=== PATIENT | female | born 1935 | race Caucasian/White ===

== ENCOUNTER 2017-01-05 09:33 | Outpatient (CLI) | payer MEDICARE ==
[2017-01-05 10:05] LABS: Anion Gap 11 mmol/L (10-20); BUN (Urea Nitrogen) 18 mg/dL (9.8-20.1); Calc. Creatinine Clearance 0 mL/min (70-130); Calcium 9.1 mg/dL (7.8-10.44); Carbon Dioxide 26 mmol/L (23-31); Chloride 109 mmol/L (98-107); Estimated GFR-MDRD 58; Glucose 88 mg/dL (83-110); Potassium 3.7 mmol/L (3.5-5.1); Sodium 142 mmol/L (136-145)
== END 2017-01-05 09:34 | disposition home or self-care (01) ==
LOC: MADLAB 09:33
PROVIDERS: ATTEND Internal Medicine Nephrology
DX: N18.3 Chronic kidney disease, stage 3 (moderate) (principal)
CPT/HCPCS: 36415; 80048

== ENCOUNTER 2017-02-18 13:28 | Emergency (ER) | payer MEDICARE ==
[2017-02-18 15:09] LABS: Hemoglobin 14.4 g/dL (12.0-16.0); Mean Corpuscular Hemoglobin 31.9 pg (27.0-31.0); Mean Corpuscular Volume 94.3 fL (81.0-99.0); Red Blood Cell (RBC) Count 4.51 mill/uL (4.20-5.40); White Blood Cell (WBC) Count 8.1 thou/uL (4.8-10.8)
[2017-02-18 15:10] LABS: #Basophils 0.1 thou/uL (0.0-0.2); #Eosinphils 0.2 thou/uL (0.0-0.7); #Lymphocytes 1.6 thou/uL (1.20-3.40); #Neutrophils 5.2 thou/uL (1.40-6.50); %Basophils 0.7 % (0.0-1.0); %Eosinophils 2.4 % (0.0-10.0); %Lymphocytes 20.1 % (21.0-51.0); %Monocytes 12.7 % (0.0-10.0); Mean Corpuscular HGB CONC 33.8 g/dL (32.0-36.0); Mean Platelet Volume 7.2 fL (7.4-10.4); Platelet Count 256 thou/uL (130-400); RBC Distribution Width 11.6 % (11.5-14.5)
== END 2017-02-18 14:44 | disposition home or self-care (01) ==
LOC: MADERS 13:28
DX: J20.9 Acute bronchitis, unspecified (principal); I10 Essential (primary) hypertension; F41.9 Anxiety disorder, unspecified; F32.9 Major depressive disorder, single episode, unspecified
CPT/HCPCS: 36415; 85025; 99283

== ENCOUNTER 2017-05-01 08:40 | Outpatient (CLI) | payer MEDICARE ==
[2017-05-01 09:14] LABS: #Eosinphils 0.3 thou/uL (0.0-0.7); #Lymphocytes 1.7 thou/uL (1.20-3.40); #Monocytes 0.6 thou/uL (0.11-0.59); #Neutrophils 3.6 thou/uL (1.40-6.50); %Basophils 0.7 % (0.0-1.0); %Eosinophils 4.7 % (0.0-10.0); %Lymphocytes 26.9 % (21.0-51.0); %Neutrophils 57.7 % (42.0-75.0); Hemoglobin 14.7 g/dL (12.0-16.0); Mean Corpuscular HGB CONC 33.1 g/dL (32.0-36.0); Mean Corpuscular Volume 96.6 fl (81.0-99.0); Mean Platelet Volume 7.8 fL (7.4-10.4); Platelet Count 189 thou/uL (130-400); RBC Distribution Width 13.2 % (11.5-14.5); White Blood Cell (WBC) Count 6.2 thou/uL (4.8-10.8)
[2017-05-01 10:39] LABS: ALT (SGPT) 11 U/L (8-55); AST (SGOT) 11 U/L (5-34); Albumin 3.8 g/dL (3.4-4.8); Alkaline Phosphatase 53 U/L (40-150); Anion Gap 11 mmol/L (10-20); BUN (Urea Nitrogen) 22 mg/dL (9.8-20.1); Bilirubin, Total 0.8 mg/dL (0.2-1.2); Calc. Creatinine Clearance 0 mL/min (70-130); Calcium 9.5 mg/dL (7.8-10.44); Carbon Dioxide 28 mmol/L (23-31); Cardiac Risk 2.7 (Less than 4.5); Chloride 106 mmol/L (98-107); Cholesterol 158 mg/dl (< 200 Desired); Estimated GFR-MDRD 48; Globulin 2.5 g/dL (2.4-3.5); Glucose 88 mg/dL (83-110); HDL Cholesterol 59 mg/dL (>60 Neg Risk); LDL Cholesterol, Calculated 80 mg/dL; Potassium 4.1 mmol/L (3.5-5.1); Protein, Total 6.3 g/dL (6.0-8.3); Sodium 141 mmol/L (136-145); Triglycerides 93 mg/dL (Less than 150)
== END 2017-05-01 08:41 | disposition home or self-care (01) ==
LOC: MADLAB 08:40
PROVIDERS: ATTEND Internal Medicine Cardiovascular Disease
DX: E78.00 Pure hypercholesterolemia, unspecified (principal); R06.02 Shortness of breath
CPT/HCPCS: 36415; 80053; 80061; 85025

== ENCOUNTER 2017-07-12 07:34 | Outpatient (CLI) | payer MEDICARE ==
[2017-07-12 08:04] LABS: Anion Gap 13 mmol/L (10-20); BUN (Urea Nitrogen) 19 mg/dL (9.8-20.1); Calc. Creatinine Clearance 0 mL/min (70-130); Calcium 9.8 mg/dL (7.8-10.44); Carbon Dioxide 27 mmol/L (23-31); Chloride 106 mmol/L (98-107); Estimated GFR-MDRD 44; Glucose 100 mg/dL (83-110); Sodium 142 mmol/L (136-145)
[2017-07-12] MEDS ORDERED: Iopamidol 370 76% 100 ML VIAL ONE (09:19)
--- NOTE | 2017-07-12 11:27 | CT ---
ABDOMEN AND PELVIC CT SCAN WITH AND WITHOUT IV CONTRAST: History: 82-year-old female with hematuria. Technique: With and without contrast multi-phase CT examination of the abdomen and pelvis is performed. Comparison: 02-04-14, 05-22-13 FINDINGS: The lung bases are clear. There are multiple stable liver cysts. The liver, gallbladder, pancreas, a nd spleen are unremarkable. There is a 2.8 cm diameter mass involving the left adrenal gland with no nspecific attenuation features but certainly not consistent with that of a typical benign intrarenal adenoma. It is very slightly increased in size when compared to the two prior studies, at the time of the 05-22-13 study this mass measured approximately 2.6 cm which suggests some very slight growth s steffany that time. There are two nonobstructing left renal calculi up to approximately 0.6 cm. No evide nce of renal hydronephrosis. No evidence for ureteral calculus. IMPRESSION: Two nonobstructing left renal calculi without evidence for acute obstruction. Solid mass involvin g the left adrenal gland which shows very slight increase in size, previously measuring 2.6 cm in si ze on the 05-22-13 study and measuring approximately 2.8 cm in size on today's study. Stable renal cys ts. Code T POS: [facility]
== END 2017-07-12 07:35 | disposition home or self-care (01) ==
LOC: MADCT 07:34
PROVIDERS: ATTEND Urology
DX: N20.0 Calculus of kidney (principal); E27.8 Other specified disorders of adrenal gland
CPT/HCPCS: 36415; 74178; 80048

== ENCOUNTER 2017-09-25 14:47 | Outpatient (CLI) | payer MEDICARE ==
--- NOTE | 2017-09-25 16:17 | RAD ---
PA AND LATERAL CHEST XRAY: DATE: 09/25/17. HISTORY: Right chest wall rib pain after a fall. COMPARISON: 06/06/16. FINDINGS: Cardiac silhouette and pulmonary vasculature are within normal limits. The lungs remain clear. Mini mal vascular calcifications are seen in the ectatic thoracic aorta. Degenerative changes are noted i n the spine. IMPRESSION: 1. No acute cardiopulmonary process. 2. Provided images demonstrate no evidence of a right-sided rib fracture. POS: [facility]
--- NOTE | 2017-09-25 16:27 | RAD ---
THREE VIEWS RIGHT RIBS: 09/25/17 HISTORY: Right sided rib pain after a fall. FINDINGS: The right lung is clear. there is no pneumothorax or pleural effusion. No right sided rib fracture is seen. IMPRESSION: No right sided rib fracture is present. POS: [facility]
== END 2017-09-25 14:48 | disposition home or self-care (01) ==
LOC: MADRAD 14:47
PROVIDERS: ATTEND Family Medicine
DX: S20.211A Contusion of right front wall of thorax, initial encounter (principal); W18.30XA Fall on same level, unspecified, initial encounter
CPT/HCPCS: 71046

== ENCOUNTER 2018-01-21 09:31 | Emergency (ER) | payer MEDICARE | END 2018-01-21 10:20 | disposition home or self-care (01) | LOC: MADERS 09:31 | DX: J30.1 Allergic rhinitis due to pollen (principal); F41.9 Anxiety disorder, unspecified; F32.9 Major depressive disorder, single episode, unspecified; I10 Essential (primary) hypertension; M10.9 Gout, unspecified; Z79.899 Other long term (current) drug therapy | CPT/HCPCS: 99282 ==

== ENCOUNTER 2018-03-22 09:00 | Emergency (ER) | payer MEDICARE ==
--- NOTE | 2018-03-22 09:50 | RAD ---
THREE VIEWS LEFT INDEX FINGER: Comparison: None. History: Left index finger injury with pain and swelling. FINDINGS: Three views of the left index finger shows a comminuted fracture of the tuft of the distal phalanx wi th overlying soft tissue swelling. There is moderate degenerative change in the PIP and DIP joint of the index finger. IMPRESSION: Tuft fracture distal phalanx of the index finger. POS: [facility]
[2018-03-22] MEDS ORDERED: Adacel (T-DAP) 0.5 ML VIAL ONE (11:01)
[2018-03-22] MEDS ORDERED: Clindamycin 150 MG CAP ONE (11:01)
[2018-03-22] MEDS ORDERED: Sodium Chloride Irrig Solution 250 ML BOT ONE (12:00)
[2018-03-22] MEDS ORDERED: Triple Antibiotic Oint 1 GM Packet ONE (12:00)
== END 2018-03-22 12:20 | disposition home or self-care (01) ==
LOC: MADERS 09:00
DX: S62.631A Displaced fracture of distal phalanx of left index finger, initial encounter for closed fracture (principal); S61.211A Laceration without foreign body of left index finger without damage to nail, initial encounter; I10 Essential (primary) hypertension; M10.9 Gout, unspecified; F41.9 Anxiety disorder, unspecified; F32.9 Major depressive disorder, single episode, unspecified; Z79.899 Other long term (current) drug therapy; W23.0XXA Caught, crushed, jammed, or pinched between moving objects, initial encounter
CPT/HCPCS: 12004; 90471; 90715; J2001

== ENCOUNTER 2018-04-16 08:31 | Outpatient (CLI) | payer MEDICARE ==
--- NOTE | 2018-04-16 10:41 | RAD ---
THREE VIEWS OF THE LEFT INDEX FINGER: Date: 04-16-18 Comparison: 03-22-18 History: Re-evaluate fracture seen on prior imaging. FINDINGS: There is a comminuted obliquely oriented and mildly displaced fracture involving the distal aspect of the left second distal phalanx. This fracture appears unchanged when compared to the 03-22-18 examinat ion, with no significant interval healing. There is overlying soft tissue swelling. There is cortical irregularity involving the distal tip of the third distal phalanx suggesting remote injury. IMPRESSION: No significant interval change in comminuted obliquely oriented nondisplaced fracture of the 2nd dist al phalanx. POS: [facility]
== END 2018-04-16 08:32 | disposition home or self-care (01) ==
LOC: MADRAD 08:31
PROVIDERS: ATTEND Family Medicine
DX: S62.661A Nondisplaced fracture of distal phalanx of left index finger, initial encounter for closed fracture (principal)

== ENCOUNTER 2018-05-01 09:57 | Outpatient (CLI) | payer MEDICARE ==
--- NOTE | 2018-05-01 11:19 | ULT ---
RENAL SONOGRAM: HISTORY: Stones. Flank pain. FINDINGS: The right kidney is 9.3 cm and the left is 9.4 cm. Each has a normal sonographic appearance without evidence of mass, stone, or hydronephrosis. No shadowing calculi are reliably demonstrated. Urinary bladder is decompressed. IMPRESSION: No sonographic evidence of urinary tract obstruction. Stones not visualized sonographically. POS: [facility]
--- NOTE | 2018-05-01 11:21 | RAD ---
RADIOGRAPH ABDOMEN ONE VIEW: DATE: 05-01-18 History: 83-year-old female with history of nephrolithiasis (calculus of kidney). FINDINGS: No radiopaque calculus is visualized overlying the bilateral renal shadows. Bowel gas pattern is norm al. Lumbar spondylosis. Mild levoscoliosis of the lumbar spine. IMPRESSION: 1. No radiopaque renal calculi identified. 2. Lumbar spondylosis. POS: [facility]
== END 2018-05-01 09:58 | disposition home or self-care (01) ==
LOC: MADRAD 09:57
PROVIDERS: ATTEND Urology
DX: N20.0 Calculus of kidney (principal); M47.896 Other spondylosis, lumbar region
CPT/HCPCS: 74018; 76770

== ENCOUNTER 2018-05-08 14:48 | Outpatient (CLI) | payer MEDICARE ==
--- NOTE | 2018-05-08 15:55 | RAD ---
LEFT HAND THREE VIEWS: History: Left hand injury. Fracture. Comparison: 04-16-18 FINDINGS: Fracture planes remain lucent at the distal kit of the index and middle fingers. No new fractures a re apparent. Osteoarthritic changes are again demonstrated. No aggressive osseous destruction or radi opaque foreign bodies. Osseous structures are demineralized. IMPRESSION: 1. No significant healing is yet evident. No new abnormalities. 2. Osteoarthritis. 3. Osteoporosis. POS: [facility]
== END 2018-05-08 14:49 | disposition home or self-care (01) ==
LOC: MADRAD 14:48
PROVIDERS: ATTEND Family Medicine
DX: S62.631D Displaced fracture of distal phalanx of left index finger, subsequent encounter for fracture with routine healing (principal); S62.633D Displaced fracture of distal phalanx of left middle finger, subsequent encounter for fracture with routine healing; M19.042 Primary osteoarthritis, left hand; M81.0 Age-related osteoporosis without current pathological fracture

== ENCOUNTER 2018-08-23 11:02 | Outpatient (CLI) | payer MEDICARE ==
--- NOTE | 2018-08-23 13:13 | RAD ---
FOUR VIEWS OF THE RIGHT KNEE: Date: 08-23-18 Comparison: 11-14-07 History: Right knee pain since November. 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 There is osteophyte formation involving the proximal right tibia medially. There is no evidence for hardware failure. No significant knee joint effusion, fracture, or dislocati on. There are post-operative change involving the posterior aspect of the patella. IMPRESSION: Post-operative changes. No acute osseous abnormalities seen. POS: [facility]
== END 2018-08-23 11:03 | disposition home or self-care (01) ==
LOC: MADRAD 11:02
PROVIDERS: ATTEND Family Medicine
DX: Z13.9 Encounter for screening, unspecified (principal); M25.561 Pain in right knee; Z98.890 Other specified postprocedural states

== ENCOUNTER 2018-09-18 09:06 | Emergency (ER) | payer MEDICARE ==
[2018-09-18 09:28] LABS: Bilirubin Negative (Negative); Blood, Urine Large (Negative); Clarity Cloudy (Clear); Glucose, Urine (Dipstick) Negative (Negative); Leukocyte Small (Negative); Nitrite Negative (Negative); Protein, Urine (Dipstick) 30 mg/dL (Neg-Trace); Specific Gravity, Urine 1.025 (1.005-1.030); Urobilinogen 0.2 mg/dL (0.2-1.0); pH, Urine 5.5 (5.0-9.0)
[2018-09-18 09:31] LABS: RBC/HPF GREATER THAN 50-TNTC HPF (0-3)
[2018-09-18 09:34] LABS: Bacteria/HPF 2+ HPF (None Seen)
[2018-09-18] MEDS ORDERED: Ondansetron PF 4 MG/2 ML Vial ONE (09:43)
[2018-09-18] MEDS ORDERED: Morphine 4 MG/ML VIAL ONE (09:43)
[2018-09-18] MEDS ORDERED: Ketorolac Tromethamine 30 MG/ML VIAL ONE (09:43)
[2018-09-18] MEDS ORDERED: Sodium Chloride 0.9% 1,000 ML ONE (09:43)
[2018-09-18 09:55] LABS: #Lymphocytes 1.1 thou/uL (1.20-3.40); #Monocytes 0.3 thou/uL (0.11-0.59); #Neutrophils 5.7 thou/uL (1.40-6.50); %Basophils 0.6 % (0.0-1.0); %Eosinophils 0.4 % (0.0-10.0); %Lymphocytes 15.9 % (21.0-51.0); %Monocytes 4.2 % (0.0-10.0); %Neutrophils 78.9 % (42.0-75.0); Hemoglobin 15.6 g/dL (12.0-16.0); Mean Corpuscular HGB CONC 33.3 g/dL (32.0-36.0); Mean Corpuscular Volume 96.2 fL (78.0-98.0); Mean Platelet Volume 8.1 fL (7.4-10.4); Platelet Count 206 thou/uL (130-400); RBC Distribution Width 13.4 % (11.5-14.5); Red Blood Cell (RBC) Count 4.86 mill/uL (4.20-5.40); White Blood Cell (WBC) Count 7.2 thou/uL (4.8-10.8)
[2018-09-18 10:09] LABS: Anion Gap 16 mmol/L (10-20); BUN (Urea Nitrogen) 14 mg/dL (9.8-20.1); Calc. Creatinine Clearance 0 mL/min (70-130); Calcium 9.6 mg/dL (7.8-10.44); Carbon Dioxide 21 mmol/L (23-31); Chloride 109 mmol/L (98-107); Estimated GFR-MDRD 46; Glucose 149 mg/dL (83-110); Potassium 3.7 mmol/L (3.5-5.1); Sodium 142 mmol/L (136-145)
--- NOTE | 2018-09-18 10:34 | CT ---
CT ABDOMEN AND PELVIS NONCONTRAST: HISTORY: Left flank pain. COMPARISON: 02/04/2014. FINDINGS: The left renal collecting system and ureter are mildly distended to the level of a 0.5 cm calculus at the distal left ureter. The left ureter is decompressed beyond this point. A 0.5 cm calculus is al so present within a calyx at the mid portion of the left kidney. Right renal collecting system, ureter, and urinary bladder are decompressed without stone evident. Lack of contrast limits evaluation for other abnormalities. Hepatic cysts are again demonstrated. C alcification within the arterial structures. Low-density mass of the left adrenal gland has enlarged slightly, now measuring up to 2.8 cm where it was previously 2.5 cm. Degenerative changes lumbar sp ine. IMPRESSION: 1. Partial obstruction at a 5 mm distal left ureteral calculus. Additional nonobstructing left jamaal l calculus. 2. Slight interval enlargement left adrenal adenoma. POS: [facility]
== END 2018-09-18 11:12 | disposition home or self-care (01) ==
LOC: MADERS 09:06
DX: N20.1 Calculus of ureter (principal); I10 Essential (primary) hypertension; M10.9 Gout, unspecified; F41.9 Anxiety disorder, unspecified; F32.9 Major depressive disorder, single episode, unspecified; Z79.899 Other long term (current) drug therapy
CPT/HCPCS: 74176; 80048; 81001; 85025; 87077; 87086; 87186; 96361; 96374; 96375; J1885; J2270; J2405; J7050

== ENCOUNTER 2018-11-08 08:40 | Outpatient (CLI) | payer MEDICARE ==
[2018-11-08 13:31] LABS: ALT (SGPT) 13 U/L (8-55); AST (SGOT) 10 U/L (5-34); Alkaline Phosphatase 75 U/L (40-150); Anion Gap 12 mmol/L (10-20); BUN (Urea Nitrogen) 19 mg/dL (9.8-20.1); Bilirubin, Total 0.9 mg/dL (0.2-1.2); Calc. Creatinine Clearance 0 mL/min (70-130); Calcium 9.5 mg/dL (7.8-10.44); Carbon Dioxide 28 mmol/L (23-31); Cardiac Risk 2.6 (Less than 4.5); Chloride 106 mmol/L (98-107); Cholesterol 164 mg/dl (< 200 Desired); Estimated GFR-MDRD 60; Globulin 2.2 g/dL (2.4-3.5); Glucose 93 mg/dL (83-110); HDL Cholesterol 62 mg/dL (>60 Neg Risk); LDL Cholesterol, Calculated 88 mg/dL; Potassium 4.2 mmol/L (3.5-5.1); Protein, Total 6.2 g/dL (6.0-8.3); Sodium 142 mmol/L (136-145); Triglycerides 68 mg/dL (Less than 150)
== END 2018-11-08 08:41 | disposition home or self-care (01) ==
LOC: MADLAB 08:40
PROVIDERS: ATTEND Internal Medicine Cardiovascular Disease
DX: E78.00 Pure hypercholesterolemia, unspecified (principal)
CPT/HCPCS: 36415; 80053; 80061

== ENCOUNTER 2019-07-07 12:59 | Emergency (ER) | payer MEDICARE ==
--- NOTE | 2019-07-07 13:24 | RAD ---
Left ankle: 3 VIEWS INDICATION:Injury and pain COMPARISON:None FINDINGS: Soft tissue swelling laterally No evidence of fracture. No acute osseous abnormality identified. Enthesophyte from the calcaneus. IMPRESSION: No evidence of fracture
== END 2019-07-07 13:35 | disposition home or self-care (01) ==
LOC: MADERS 12:59
DX: S93.402A Sprain of unspecified ligament of left ankle, initial encounter (principal); I10 Essential (primary) hypertension; M10.9 Gout, unspecified; F41.9 Anxiety disorder, unspecified; F32.9 Major depressive disorder, single episode, unspecified; Z79.899 Other long term (current) drug therapy; X50.1XXA Overexertion from prolonged static or awkward postures, initial encounter

== ENCOUNTER 2021-06-30 13:31 | Emergency (ER) | payer MEDICARE | END 2021-06-30 15:10 | disposition home or self-care (01) | LOC: MADERS 13:31 | DX: S43.401A Unspecified sprain of right shoulder joint, initial encounter (principal); I10 Essential (primary) hypertension; W01.0XXA Fall on same level from slipping, tripping and stumbling without subsequent striking against object, initial encounter | CPT/HCPCS: 71046 ==

== ENCOUNTER 2022-06-17 08:34 | Outpatient (CLI) | payer MEDICARE ==
[2022-06-17 09:25] LABS: #Basophils 0.1 thou/uL (0.0-0.2); #Eosinphils 0.3 thou/uL (0.0-0.7); #Lymphocytes 2.3 thou/uL (1.20-3.40); #Monocytes 0.7 thou/uL (0.11-0.59); %Basophils 1.2 % (0.0-1.0); %Eosinophils 6.1 % (0.0-10.0); %Lymphocytes 42.8 % (21.0-51.0); %Monocytes 13.1 % (0.0-10.0); %Neutrophils 36.9 % (42.0-75.0); Hemoglobin 14.3 g/dL (12.0-16.0); Mean Corpuscular HGB CONC 30.6 g/dL (32.0-36.0); Mean Corpuscular Hemoglobin 30.9 pg (27.0-31.0); Mean Platelet Volume 8.8 fL (7.4-10.4); Platelet Count 177 thou/uL (130-400); RBC Distribution Width 13.4 % (11.5-14.5); Red Blood Cell (RBC) Count 4.61 mill/uL (4.20-5.40); White Blood Cell (WBC) Count 5.3 thou/uL (4.8-10.8)
[2022-06-17 09:30] LABS: ALT (SGPT) 10 U/L (8-55); AST (SGOT) 14 U/L (5-34); Albumin 3.9 g/dL (3.4-4.8); Alkaline Phosphatase 60 U/L (40-110); Anion Gap 13 mmol/L (10-20); BUN (Urea Nitrogen) 23 mg/dL (9.8-20.1); Bilirubin, Total 0.7 mg/dL (0.2-1.2); Calc. Creatinine Clearance 0 mL/min (70-130); Calcium 9.8 mg/dL (7.8-10.44); Carbon Dioxide 30 mmol/L (23-31); Cardiac Risk 2.8 (Less than 4.5); Chloride 103 mmol/L (98-107); Cholesterol 132 mg/dl (< 200 Desired); Estimated GFR 41; Globulin 2.5 g/dL (2.4-3.5); Glucose 86 mg/dL (83-110); HDL Cholesterol 47 mg/dL (>60 Neg Risk); LDL Cholesterol, Calculated 59 mg/dL; Potassium 3.9 mmol/L (3.5-5.1); Protein, Total 6.4 g/dL (5.8-8.1); Sodium 142 mmol/L (136-145); Triglycerides 128 mg/dL (Less than 150)
== END 2022-06-17 08:35 | disposition home or self-care (01) ==
LOC: MADLAB 08:34
PROVIDERS: ATTEND Internal Medicine Cardiovascular Disease
DX: R06.02 Shortness of breath (principal); E78.00 Pure hypercholesterolemia, unspecified
CPT/HCPCS: 36415; 71046; 80053; 80061; 84443; 85025

== ENCOUNTER 2023-07-18 11:39 | Outpatient (CLI) | payer MEDICARE | END 2023-07-18 11:40 | disposition home or self-care (01) | LOC: MADLAB 11:39 | PROVIDERS: ATTEND Surgery | DX: M47.22 Other spondylosis with radiculopathy, cervical region (principal); M48.02 Spinal stenosis, cervical region | CPT/HCPCS: 72125 ==

== ENCOUNTER 2023-08-22 08:26 | Emergency (ER) | payer OTHER, MEDICARE ==
[2023-08-22 09:36] LABS: #Eosinphils 0.2 thou/uL (0.0-0.7); #Lymphocytes 1.3 thou/uL (1.20-3.40); #Monocytes 0.7 thou/uL (0.11-0.59); #Neutrophils 2.7 thou/uL (1.40-6.50); %Basophils 0.8 % (0.0-1.0); %Eosinophils 3.9 % (0.0-10.0); %Lymphocytes 26.3 % (21.0-51.0); %Monocytes 14.3 % (0.0-10.0); %Neutrophils 54.7 % (42.0-75.0); Hematocrit 46.8 % (36.0-47.0); Hemoglobin 15.1 g/dL (12.0-16.0); Mean Corpuscular HGB CONC 32.2 g/dL (32.0-36.0); Mean Corpuscular Hemoglobin 32.1 pg (27.0-31.0); Mean Corpuscular Volume 99.8 fl (78.0-98.0); Mean Platelet Volume 9.6 fL (7.4-10.4); Platelet Count 167 10x3/uL (130-400); RBC Distribution Width 12.7 % (11.5-14.5); Red Blood Cell (RBC) Count 4.69 mill/uL (4.20-5.40)
[2023-08-22 09:42] LABS: ALT (SGPT) 9 U/L (8-55); AST (SGOT) 15 U/L (5-34); Albumin 4.1 g/dL (3.4-4.8); Alkaline Phosphatase 64 U/L (40-110); Anion Gap 12 mmol/L (10-20); BUN (Urea Nitrogen) 14 mg/dL (9.8-20.1); Bilirubin, Total 1.1 mg/dL (0.2-1.2); Calc. Creatinine Clearance 0 mL/min (70-130); Calcium 9.7 mg/dL (7.8-10.44); Carbon Dioxide 27 mmol/L (23-31); Chloride 106 mmol/L (98-107); Estimated GFR 59; Globulin 2.6 g/dL (2.4-3.5); Glucose 100 mg/dL (83-110); Protein, Total 6.7 g/dL (5.8-8.1)
[2023-08-22 09:48] LABS: Sodium 141 mmol/L (136-145)
== END 2023-08-22 10:03 | disposition home or self-care (01) ==
LOC: MADERS 08:26
DX: S06.0X0A Concussion without loss of consciousness, initial encounter (principal); S00.83XA Contusion of other part of head, initial encounter; M54.2 Cervicalgia; R00.1 Bradycardia, unspecified; E78.5 Hyperlipidemia, unspecified; I10 Essential (primary) hypertension; Z79.899 Other long term (current) drug therapy; W01.0XXA Fall on same level from slipping, tripping and stumbling without subsequent striking against object, initial encounter
CPT/HCPCS: 70450; 70486; 72125; 80053; 85025; 93005

== ENCOUNTER 2023-11-27 09:08 | Outpatient (CLI) | payer MEDICARE | END 2023-11-27 09:09 | disposition home or self-care (01) | LOC: MADRAD 09:08 | PROVIDERS: ATTEND Anesthesiology Pain Medicine | DX: M48.02 Spinal stenosis, cervical region (principal); M47.812 Spondylosis without myelopathy or radiculopathy, cervical region; Z98.890 Other specified postprocedural states | CPT/HCPCS: 72040 ==

== ENCOUNTER 2024-05-17 19:18 | Emergency (ER) | payer MEDICARE ==
[2024-05-17] MEDS ORDERED: Labetalol HCl 100 MG/20 ML VIAL ONE (19:42)
[2024-05-17] MEDS ORDERED: Acetaminophen 500 MG TAB ONE (19:42)
[2024-05-17 19:48] LABS: #Basophils 0.1 thou/uL (0.0-0.2); #Eosinphils 0.3 thou/uL (0.0-0.7); #Lymphocytes 2.2 thou/uL (1.20-3.40); #Monocytes 0.8 thou/uL (0.11-0.59); #Neutrophils 3.2 thou/uL (1.40-6.50); %Basophils 0.8 % (0.0-1.0); %Eosinophils 4.8 % (0.0-10.0); %Lymphocytes 33.9 % (21.0-51.0); %Monocytes 11.5 % (0.0-10.0); %Neutrophils 48.9 % (42.0-75.0); Hematocrit 48.3 % (36.0-47.0); Hemoglobin 15.5 g/dL (12.0-16.0); Mean Corpuscular HGB CONC 32.1 g/dL (32.0-36.0); Mean Corpuscular Hemoglobin 30.8 pg (27.0-31.0); Mean Platelet Volume 8.8 fL (7.4-10.4); Platelet Count 184 10x3/uL (130-400); RBC Distribution Width 12.3 % (11.5-14.5); Red Blood Cell (RBC) Count 5.03 mill/uL (4.20-5.40); White Blood Cell (WBC) Count 6.6 10x3/uL (4.8-10.8)
[2024-05-17 20:07] LABS: ALT (SGPT) 11 U/L (8-55); AST (SGOT) 14 U/L (5-34); Albumin 3.8 g/dL (3.4-4.8); Alkaline Phosphatase 67 U/L (40-110); Anion Gap 16 mmol/L (10-20); BUN (Urea Nitrogen) 19 mg/dL (9.8-20.1); Bilirubin, Total 0.6 mg/dL (0.2-1.2); Calc. Creatinine Clearance 0 mL/min (70-130); Calcium 9.4 mg/dL (7.8-10.44); Carbon Dioxide 21 mmol/L (23-31); Chloride 108 mmol/L (98-107); Estimated GFR 47; Globulin 2.9 g/dL (2.4-3.5); Glucose 99 mg/dL (83-110); Magnesium 2.1 mg/dL (1.6-2.6); Potassium 4.3 mmol/L (3.5-5.1); Protein, Total 6.7 g/dL (5.8-8.1); Sodium 141 mmol/L (136-145); Troponin I Less than 0.010 ng/mL (< 0.028)
[2024-05-17 20:29] LABS: Bilirubin Negative (Negative); Blood, Urine Negative (Negative); Glucose, Urine (Dipstick) Negative (Negative); Ketone, Urine Negative (Negative); Leukocyte Small (Negative); Nitrite Negative (Negative); Protein, Urine (Dipstick) Negative (Neg-Trace); Urobilinogen 0.2 mg/dL (Less than 2)
[2024-05-17 20:33] LABS: Bacteria/HPF 1+ HPF (None Seen); CAUTI Indications for Culture Pelvic or flank pain; Clarity Slightly Cloudy (Clear); RBC/HPF 0-3 HPF (0-3); Squamous Epithelial 0-3 HPF (0-3); Urine Culture Reflex No No
[2024-05-17] MEDS ORDERED: Nitrofurantoin Monohyd/M-Cryst 100 MG CAP ONE (20:42)
[2024-05-17] MEDS ORDERED: niCARdipine 25 MG/10 ML SDV ONE (21:44)
[2024-05-17] MEDS ORDERED: Sodium Chloride 0.9% 0 ML ONE (21:45)
[2024-05-17] MEDS ORDERED: Sodium Chloride 0.9% 250 ML 250 ML ONE (21:49)
== END 2024-05-17 22:47 | disposition short-term general hospital (02) ==
LOC: MADERS 19:18
DX: I16.0 Hypertensive urgency (principal); N39.0 Urinary tract infection, site not specified; Z79.899 Other long term (current) drug therapy
CPT/HCPCS: 70450; 71045; 80053; 81001; 83735; 83880; 84484; 85025; 93005; 94760; 96365; 96375; J7050

== ENCOUNTER 2024-05-22 14:12 | Emergency (ER) | payer MEDICARE ==
[2024-05-22 14:52] LABS: #Basophils 0.1 thou/uL (0.0-0.2); #Eosinphils 0.3 thou/uL (0.0-0.7); #Lymphocytes 2.1 thou/uL (1.20-3.40); #Monocytes 0.7 thou/uL (0.11-0.59); #Neutrophils 3.5 thou/uL (1.40-6.50); %Basophils 0.8 % (0.0-1.0); %Eosinophils 4.2 % (0.0-10.0); %Lymphocytes 31.8 % (21.0-51.0); %Monocytes 9.9 % (0.0-10.0); %Neutrophils 53.3 % (42.0-75.0); Hematocrit 49.1 % (36.0-47.0); Hemoglobin 15.4 g/dL (12.0-16.0); Mean Corpuscular HGB CONC 31.4 g/dL (32.0-36.0); Mean Corpuscular Hemoglobin 30.5 pg (27.0-31.0); Mean Corpuscular Volume 97.2 fl (78.0-98.0); Platelet Count 184 10x3/uL (130-400); RBC Distribution Width 12.7 % (11.5-14.5); Red Blood Cell (RBC) Count 5.05 mill/uL (4.20-5.40); White Blood Cell (WBC) Count 6.6 10x3/uL (4.8-10.8)
[2024-05-22 15:06] LABS: Anion Gap 16 mmol/L (10-20); BUN (Urea Nitrogen) 26 mg/dL (9.8-20.1); Calc. Creatinine Clearance 0 mL/min (70-130); Carbon Dioxide 19 mmol/L (23-31); Chloride 111 mmol/L (98-107); Potassium 3.8 mmol/L (3.5-5.1); Sodium 142 mmol/L (136-145)
[2024-05-22 15:07] LABS: ALT (SGPT) 9 U/L (8-55); AST (SGOT) 11 U/L (5-34); Albumin 3.8 g/dL (3.4-4.8); Alkaline Phosphatase 63 U/L (40-110); Bilirubin, Total 0.9 mg/dL (0.2-1.2); Calcium 9.7 mg/dL (7.8-10.44); Estimated GFR 43; Globulin 2.7 g/dL (2.4-3.5); Glucose 122 mg/dL (83-110); Protein, Total 6.5 g/dL (5.8-8.1); Troponin I 0.014 ng/mL (< 0.028)
[2024-05-22] MEDS ORDERED: Aspirin Chewable 81 MG TAB ONE (15:44)
[2024-05-22 20:45] LABS: Troponin I 0.037 ng/mL (< 0.028)
[2024-05-22 20:49] LABS: Critical Call Chem Troponin I NUR.KKM@2048
[2024-05-22] MEDS ORDERED: hydrALAZINE 10 MG TAB ONE ×2 (21:20→21:26)
== END 2024-05-22 21:50 | disposition short-term general hospital (02) ==
LOC: MADERS 14:12
DX: R07.9 Chest pain, unspecified (principal); I10 Essential (primary) hypertension; Z79.899 Other long term (current) drug therapy; Z79.82 Long term (current) use of aspirin
CPT/HCPCS: 71045; 80053; 83880; 84484; 85025; 93005

== ENCOUNTER 2025-06-11 13:40 | Outpatient (CLI) | payer MEDICARE ==
[2025-06-11 14:16] LABS: Anion Gap 13 mmol/L (10-20); BUN (Urea Nitrogen) 20 mg/dL (9.8-20.1); Calc. Creatinine Clearance 0 mL/min (70-130); Calcium 9.4 mg/dL (7.8-10.44); Carbon Dioxide 25 mmol/L (23-31); Chloride 109 mmol/L (98-107); Glucose 111 mg/dL (83-110); Potassium 3.8 mmol/L (3.5-5.1); Sodium 143 mmol/L (136-145)
== END 2025-06-11 13:41 | disposition home or self-care (01) ==
LOC: MADLAB 13:40
PROVIDERS: ATTEND Internal Medicine Nephrology
DX: N18.30 Chronic kidney disease, stage 3 unspecified (principal)
CPT/HCPCS: 36415; 80048

== ENCOUNTER 2025-07-30 10:18 | Outpatient (CLI) | payer MEDICARE ==
[2025-07-30 10:52] LABS: ALT (SGPT) 7 U/L (Less than 34); AST (SGOT) 11 U/L (11-34); Albumin 3.8 g/dL (3.1-4.5); Alkaline Phosphatase 65 U/L (40-110); Anion Gap 12 mmol/L (10-20); BUN (Urea Nitrogen) 19 mg/dL (9.8-20.1); Bilirubin, Total 1.0 mg/dL (0.3-1.2); Calc. Creatinine Clearance 0 mL/min (70-130); Calcium 9.2 mg/dL (7.8-10.44); Carbon Dioxide 26 mmol/L (23-31); Cardiac Risk 2.8 (Less than 4.5); Chloride 110 mmol/L (98-107); Cholesterol 119 mg/dl (< 200 Desired); Globulin 2.4 g/dL (2.4-3.5); Glucose 84 mg/dL (83-110); HDL Cholesterol 42 mg/dL (>60 Neg Risk); LDL Cholesterol, Calculated 61 mg/dL; Potassium 4.2 mmol/L (3.5-5.1); Sodium 144 mmol/L (136-145); Triglycerides 81 mg/dL (Less than 150)
== END 2025-07-30 10:19 | disposition home or self-care (01) ==
LOC: MADLAB 10:18
PROVIDERS: ATTEND Family Medicine
DX: Z00.00 Encounter for general adult medical examination without abnormal findings (principal)
CPT/HCPCS: 36415; 80053; 80061